=== PATIENT | male | born 1950 | race Caucasian/White ===

== ENCOUNTER 2017-03-01 14:41 | Inpatient (IN) | payer OTHER ==
[~2017-03-01] VITALS: Ht 170.2 cm; Wt 154.5 kg
[~2017-03-01 14:41] MED LIST: ASPIRIN325 MG PO; ATORVASTATIN CA40 MG PO; AUGMENTIN875 MG PO; Augmentin PO; FUROSEMIDE40 MG PO; GLUCOTROL XL5 MG PO; HUMALOG MI100 UNIT/6 SC; HUMALOG MI100 UNITS/ SC; LINEZOLID; OxyCODONE; TOPROL XL100 MG PO; TYLENOL EXTRA500 MG PO; ZESTRIL20 MG PO; flonase NS; furosemide; glipizide PO; humalog; lipitor PO; lisinopril PO; metoprolol PO; singulair PO
[2017-03-01 15:41] LABS: EOSINOPHIL (%) 0 % (0-5); HEMATOCRIT 34.6 % (38.0-50.0); IMMATURE GRANULOCYTE (%) 0.5 % (0.0-0.7); IMMATURE GRANULOCYTE COUNT 0.1 K/uL; INSTRUMENT ABS NEUTROPHIL CT 10.4 K/uL; LYMPHOCYTE COUNT 0.6 K/uL (1.0-2.8); MCH 23.3 PG (29.0-34.0); MCHC 30.6 G/DL (30.0-36.0); MCV 76.2 FL (86-99); MONOCYTE (%) 5.7 % (3-12); MONOCYTE COUNT 0.7 K/uL (0-0.8); NEUTROPHIL (%) 88.2 % (45-76); NEUTROPHIL COUNT 10.4 K/uL (1.8-6.4); PLATELET COUNT 193 K/uL (156-360); RBC DIS.WIDTH-CV 14.6 % (11.8-14.6); RBC DIS.WIDTH-SD 39.8 % (39-53); RED BLOOD COUNT 4.54 M/uL (4.00-5.50); WHITE BLOOD COUNT 11.8 K/uL (4.1-10.2)
[2017-03-01 15:49] LABS: CHLORIDE 100 mEq/L (99-109); POTASSIUM 3.4 mEq/L (3.7-5.4); SODIUM 136 mEq/L (136-147)
[2017-03-01 15:51] LABS: GLUCOSE 298 mg/dL (70-99)
[2017-03-01 15:52] LABS: ANION GAP 17 MEQ/L (2-14)
[2017-03-01 15:55] LABS: GFR ESTIMATE (CALCULATED) 50 mL/min/
[2017-03-01 15:56] LABS: UREA NITROGEN (BUN) 18 mg/dL (9-23)
[2017-03-01 16:25] LABS: TOTAL BILIRUBIN 0.8 mg/dL (0.0-1.0)
[2017-03-01 16:26] LABS: ALKALINE PHOSPHATASE 75 IU/L (3-129)
[2017-03-01 16:27] LABS: POINT-OF-CARE METER ID UU13113747
[2017-03-01 16:29] LABS: DIRECT BILIRUBIN 0.4 mg/dL (0.0-0.3)
[2017-03-01 16:33] LABS: TROP-I INTERPRETATION NEGATIVE; TROPONIN-I 0.02 ng/mL (0.0-0.30)
[2017-03-01 18:19] LABS: BASE EXCESS -6.2 mEq/L (-3 to +3); BICARBONATE 18.9 mEq/L (22-26); CARBOXY HGB 0.4 % (0-5); METHEMOGLOBIN 0.2 % (0-1.5); PCO2 35 mm Hg (35-45); PO2 71 mm Hg (80-100); pH 7.34 (7.35-7.45)
[2017-03-01 18:20] LABS: COMMENTS - BLOOD GASES A+C+; DEVICE NC; O2 FLOW 2 L/MIN; SITE LR; TOTAL RESP RATE 28 resp/min
[2017-03-01] MEDS ORDERED: GLUCOTROL XL10 MG PO (20:07)
[2017-03-01] MEDS ORDERED: LO-DOSE ASPIRIN81 M2 PO (20:10)
[2017-03-02 00:14] LABS: ADD MIUA? YES; BILIRUBIN NEGATIVE; BLOOD NEGATIVE; COLOR YELLOW ((YELLOW)); GLUCOSE (STRIP) 150; KETONES 5; LEUKOCYTES TRACE; NITRITE NEGATIVE; PROTEIN (STRIP) NEGATIVE; UROBILINOGEN 0.2 MG/DL (0.2-1.0)
[2017-03-02 00:28] LABS: BACTERIA NONE SEEN /HPF; EPITHELIAL CELLS NONE SEEN /HPF; MUCUS NONE SEEN /LPF; RED BLOOD CELLS 0-5 /HPF (0-5); UCUL ADDED? YES
[2017-03-02 04:18] VITALS: BP 122/56
[2017-03-02 05:26] LABS: INFLUENZA A VIRAL ANTIGEN NEGATIVE; INFLUENZA B VIRAL ANTIGEN NEGATIVE
[2017-03-02 07:04] LABS: Estimated Average Glucose 246 mg/dL (70-123); HEMOGLOBIN A1c (GLYCOHEMOGLOB) 10.2 % HGB (Below 5.7)
[2017-03-02 07:05] LABS: TROP-I INTERPRETATION NEGATIVE
[2017-03-02 07:16] VITALS: BP 134/83
[2017-03-02 07:37] LABS: POINT-OF-CARE METER ID UU14188625
[2017-03-02 10:14] LABS: HEMATOCRIT 31.5 % (38.0-50.0); MCH 23.4 PG (29.0-34.0); MCHC 29.8 G/DL (30.0-36.0); MCV 78.4 FL (86-99); MEAN PLAT.VOLUME 9.5 uM^3 (9.0-12.4); PLATELET COUNT 188 K/uL (156-360); RBC DIS.WIDTH-CV 15.2 % (11.8-14.6); RBC DIS.WIDTH-SD 43.1 % (39-53); RED BLOOD COUNT 4.02 M/uL (4.00-5.50); WHITE BLOOD COUNT 17.6 K/uL (4.1-10.2)
[2017-03-02 10:45] LABS: TROP-I INTERPRETATION NEGATIVE; TROPONIN-I 0.11 ng/mL (0.0-0.30)
[2017-03-02 10:49] LABS: ANION GAP 9 MEQ/L (2-14); CHLORIDE 105 MEQ/L (99-109); GFR ESTIMATE (CALCULATED) > 59 mL/min/; GLUCOSE 236 mg/dL (70-99); SAMPLE HEMOLYSIS CHECK 0; SAMPLE ICTERIC CHECK 0; SAMPLE LIPEMIA CHECK 0; SODIUM 137 MEQ/L (136-147); UREA NITROGEN (BUN) 21 mg/dL (9-23)
[2017-03-02 10:56] LABS: POTASSIUM 4.2 MEQ/L (3.7-5.4)
[2017-03-02 10:58] LABS: ABS NEUTROPHIL COUNT 16.1; ANISOCYTOSIS 1+; ATYPICAL LYMPHOCYTE 0.9 %; BAND NEUTROPHILS 29.8 % (0-8.0); BURR CELLS 2+; EOSINOPHIL ABS CT 0; INSTRUMENT ABS NEUTROPHIL CT 15.3 K/uL; LYMPHOCYTES 2.6 % (15.0-45.0); METAMYELOCYTES 4.4 %; OVALOCYTES 1+; PLAT.SUFFICIENCY ADEQUATE; POIKILOCYTOSIS 3+; POLYCHROMASIA 1+; SEG.NEUTROPHILS 61.4 % (46.0-76.0)
[2017-03-02 11:31] VITALS: BP 141/79
[2017-03-02 11:38] LABS: POINT-OF-CARE METER ID UU14188625
[2017-03-02 12:19] LABS: APPEARANCE CLEAR/COLORLESS; RED CELL AREA COUNTED 18; RED CELL COUNT 1 /MM^3 (0-1); RED CELL DILUTION 1; WBC DILUTION 1; WHITE CELL RAW COUNT 5
[2017-03-02 12:20] LABS: CSF EOSINOPHILS 0 % (0-25); MONO RAW COUNT 3; MONONUCLEAR WBC'S 100 % (50-90); POLYNUCLEAR WBC'S 0 % (0-3); WBC AREA COUNTED 18; WHITE CELL COUNT 3 /MM^3 (0-5)
[2017-03-02 12:42] LABS: TROP-I INTERPRETATION NEGATIVE; TROPONIN-I 0.12 ng/mL (0.0-0.30)
[2017-03-02 15:10] LABS: TROP-I INTERPRETATION NEGATIVE; TROPONIN-I 0.14 ng/mL (0.0-0.30)
[2017-03-02 15:13] VITALS: BP 134/78
[2017-03-02 19:42] VITALS: BP 147/65
[2017-03-02 21:13] LABS: POINT-OF-CARE METER ID UU14188625
[2017-03-03] VITALS (8 sets, daily range): BP systolic 120–180; BP diastolic 57–73
[2017-03-03 06:44] LABS: HEMATOCRIT 30.6 % (38.0-50.0); MCH 23.2 PG (29.0-34.0); MCHC 29.7 G/DL (30.0-36.0); MCV 78.1 FL (86-99); MEAN PLAT.VOLUME 9.7 uM^3 (9.0-12.4); PLATELET COUNT 182 K/uL (156-360); RBC DIS.WIDTH-CV 15.3 % (11.8-14.6); RBC DIS.WIDTH-SD 43.2 % (39-53); RED BLOOD COUNT 3.92 M/uL (4.00-5.50); WHITE BLOOD COUNT 16.2 K/uL (4.1-10.2)
[2017-03-03 07:11] LABS: ANION GAP 9 MEQ/L (2-14); CHLORIDE 107 MEQ/L (99-109); GFR ESTIMATE (CALCULATED) > 59 mL/min/; POTASSIUM 4.3 MEQ/L (3.7-5.4); SAMPLE HEMOLYSIS CHECK 0; SAMPLE ICTERIC CHECK 0; SAMPLE LIPEMIA CHECK 0; SODIUM 140 MEQ/L (136-147); UREA NITROGEN (BUN) 24 mg/dL (9-23)
[2017-03-03 07:13] LABS: GLUCOSE 97 mg/dL (70-99)
[2017-03-03 07:16] LABS: BASOPHIL COUNT 0.1 K/uL (0-0.1); EOSINOPHIL (%) 0.2 % (0-5); IMMATURE GRANULOCYTE (%) 3.6 % (0.0-0.7); IMMATURE GRANULOCYTE COUNT 0.6 K/uL; INSTRUMENT ABS NEUTROPHIL CT 14.5 K/uL; LYMPHOCYTE COUNT 0.7 K/uL (1.0-2.8); MONOCYTE (%) 2.6 % (3-12); MONOCYTE COUNT 0.4 K/uL (0-0.8); NEUTROPHIL (%) 89.3 % (45-76); NEUTROPHIL COUNT 14.5 K/uL (1.8-6.4)
[2017-03-03 07:25] LABS: POINT-OF-CARE METER ID UU13113717
[2017-03-03 12:14] LABS: POINT-OF-CARE METER ID UU13113717
[2017-03-03 13:18] LABS: C DIFF TOXIN NEGATIVE (NEGATIVE)
[2017-03-03 13:23] LABS: PROBE CHECK PASS; SPECIMEN PROCESSING CONTROL PASS
[2017-03-03 16:55] LABS: POINT-OF-CARE METER ID UU13113717
[2017-03-03 21:20] LABS: POINT-OF-CARE METER ID UU13113717
[2017-03-04 04:16] VITALS: BP 157/70
[2017-03-04 08:08] VITALS: BP 143/62
[2017-03-04 08:15] LABS: POINT-OF-CARE METER ID UU13113717
[2017-03-04 11:30] VITALS: BP 154/67
[2017-03-04 12:40] LABS: POINT-OF-CARE METER ID UU13113717
[2017-03-04 15:40] VITALS: BP 156/68
[2017-03-04 17:08] LABS: POINT-OF-CARE METER ID UU14188625
[2017-03-04 19:35] VITALS: BP 145/67
[2017-03-04 21:04] LABS: POINT-OF-CARE METER ID UU14188625
[2017-03-04 23:41] VITALS: BP 153/72
[2017-03-05 03:41] VITALS: BP 149/74
[2017-03-05 06:49] LABS: EOSINOPHIL (%) 1.5 % (0-5); EOSINOPHIL COUNT 0.1 K/uL (0-0.3); IMMATURE GRANULOCYTE (%) 0.9 % (0.0-0.7); IMMATURE GRANULOCYTE COUNT 0.1 K/uL; INSTRUMENT ABS NEUTROPHIL CT 5.8 K/uL; LYMPHOCYTE COUNT 0.8 K/uL (1.0-2.8); MCH 22.8 PG (29.0-34.0); MCHC 29.4 G/DL (30.0-36.0); MCV 77.5 FL (86-99); MEAN PLAT.VOLUME 9.5 uM^3 (9.0-12.4); MONOCYTE (%) 9.3 % (3-12); MONOCYTE COUNT 0.7 K/uL (0-0.8); NEUTROPHIL (%) 77.3 % (45-76); NEUTROPHIL COUNT 5.8 K/uL (1.8-6.4); PLATELET COUNT 169 K/uL (156-360); RBC DIS.WIDTH-CV 15.2 % (11.8-14.6); RBC DIS.WIDTH-SD 43.2 % (39-53); WHITE BLOOD COUNT 7.6 K/uL (4.1-10.2)
[2017-03-05 07:06] LABS: ANION GAP 9 MEQ/L (2-14); CHLORIDE 106 MEQ/L (99-109); GFR ESTIMATE (CALCULATED) > 59 mL/min/; POTASSIUM 4.5 MEQ/L (3.7-5.4); SAMPLE HEMOLYSIS CHECK 0; SAMPLE ICTERIC CHECK 0; SAMPLE LIPEMIA CHECK 0; SODIUM 140 MEQ/L (136-147); UREA NITROGEN (BUN) 22 mg/dL (9-23)
[2017-03-05 07:19] LABS: GLUCOSE 210 mg/dL (70-99)
[2017-03-05 08:06] VITALS: BP 144/65
[2017-03-05 12:00] VITALS: BP 168/72
[2017-03-05 12:46] LABS: POINT-OF-CARE METER ID UU13113717
[2017-03-05 16:54] LABS: POINT-OF-CARE METER ID UU13113717
[2017-03-05 17:06] VITALS: BP 147/67
[2017-03-05 19:35] VITALS: BP 168/70
[2017-03-05 23:33] VITALS: BP 99/57
[2017-03-06 03:47] VITALS: BP 113/61
[2017-03-06 07:33] VITALS: BP 155/68
[2017-03-06 07:50] LABS: POINT-OF-CARE METER ID UU14188625
[2017-03-06] MEDS ORDERED: NOVOLOG MI100 UNIT/3 SC (10:08)
[2017-03-06] MEDS ORDERED: GLIPIZIDE5 MG PO (10:09)
[2017-03-06] MEDS ORDERED: NOVOLOG PE100 UNITS/ SC (10:09)
[2017-03-06] MEDS ORDERED: NYSTATIN15 GM TP (10:09)
[2017-03-06 11:12] LABS: POINT-OF-CARE METER ID UU14188625
[2017-03-06 11:20] VITALS: BP 145/68
[2017-03-06] MEDS ORDERED: CEPHALEXIN500 MG PO (11:33)
[2017-03-06 15:27] VITALS: BP 136/71
== END 2017-03-06 16:45 | DRG 872 ==
LOC: EME 14:41 → EDOF 03-02 01:21 → 5SOUTH 03-02 01:21 → ENRESERV 03-02 01:22 → 5SOUTH 03-02 03:53
PROVIDERS: Emergency Medicine; Hospitalist; Internal Medicine
DX: A41.9 Sepsis, unspecified organism (principal); L03.115 Cellulitis of right lower limb; N17.9 Acute kidney failure, unspecified; E11.65 Type 2 diabetes mellitus with hyperglycemia; E87.2 Acidosis; N48.1 Balanitis; E87.6 Hypokalemia; I25.10 Atherosclerotic heart disease of native coronary artery without angina pectoris; J81.1 Chronic pulmonary edema; I11.9 Hypertensive heart disease without heart failure; E66.01 Morbid (severe) obesity due to excess calories; I89.0 Lymphedema, not elsewhere classified; E78.5 Hyperlipidemia, unspecified; F32.9 Major depressive disorder, single episode, unspecified; K21.9 Gastro-esophageal reflux disease without esophagitis; Z68.43 Body mass index [BMI] 50.0-59.9, adult; Z79.4 Long term (current) use of insulin; Z79.899 Other long term (current) drug therapy; Z72.0 Tobacco use; Z79.82 Long term (current) use of aspirin; Z95.1 Presence of aortocoronary bypass graft; Z86.12 Personal history of poliomyelitis
CPT/HCPCS: 36600; 70450; 71010; 71275; 73552; 73590; 74177; 77002; 77003; 80048; 80076; 81003; 82803; 82945; 82948; 83036; 83605; 84157; 84484; 85025; 85027; 87040; 87070; 87086; 87205; 87493; 87502; 87506; 87651 90; 89051; 93005; 93971; 94010; 94640; 94640 76; 94760; 94799; 97530 GO; 97530 GP; 99202; 99281; 99285; J0690; J0696; J1644; J1815; J1940; J2540; J3370; J7030; J7040; J7050